=== PATIENT | male | born 1955 | race Caucasian/White ===

== ENCOUNTER 2020-11-13 13:06 | Emergency (ER) | payer BC, OTHER ==
[2020-11-13 14:32] LABS: HEMOGLOBIN 12.9 gm/dl (14.0-17.5); RED BLOOD COUNT 4.28 M/UL (4.20-5.50); WHITE BLOOD COUNT 4.8 K/UL (4.5-11.0)
[2020-11-13 14:59] LABS: BUN/CREATININE RATIO 14 (0-10)
[2020-11-13] MEDS ORDERED: DOXYCYCLINE HY100 MG PO (16:31)
== END 2020-11-13 18:50 | disposition home or self-care (01) ==
LOC: ER1 13:06
PROVIDERS: Family Medicine
DX: U07.1 COVID-19 (principal); J12.82 Pneumonia due to coronavirus disease 2019; J44.1 Chronic obstructive pulmonary disease with (acute) exacerbation; I10 Essential (primary) hypertension; Z88.0 Allergy status to penicillin; Z87.891 Personal history of nicotine dependence
CPT/HCPCS: 0240U; 36600; 71046; 80053; 81001; 82550; 82553; 82803; 83874; 84484; 85025; 85379; 85652; 86140; 87081; 87880; 93005; 94664; 94760; 96374; 99285; J2930; M0239

== ENCOUNTER 2021-11-14 19:32 | Emergency (ER) | payer BC ==
[~2021-11-14 19:32] MED LIST: DOXYCYCLINE HY100 MG PO
[2021-11-14 20:59] LABS: RED BLOOD COUNT 4.7 M/UL (4.20-5.50); WHITE BLOOD COUNT 9.3 K/UL (4.5-11.0)
[2021-11-14] MEDS ORDERED: PREDNISONE 20 M20 MG PO (22:37)
== END 2021-11-14 22:40 | disposition home or self-care (01) ==
LOC: ER1 19:32
PROVIDERS: Physician Assistant
DX: U07.1 COVID-19 (principal); J44.0 Chronic obstructive pulmonary disease with (acute) lower respiratory infection; J20.9 Acute bronchitis, unspecified; J44.1 Chronic obstructive pulmonary disease with (acute) exacerbation; I11.9 Hypertensive heart disease without heart failure; F17.210 Nicotine dependence, cigarettes, uncomplicated; Z85.828 Personal history of other malignant neoplasm of skin; Z88.0 Allergy status to penicillin
CPT/HCPCS: 0240U; 36600; 71045; 80053; 81001; 82550; 82553; 82803; 83874; 83880; 84484; 85025; 85610; 85730; 99285

== ENCOUNTER 2022-05-13 12:27 | Emergency (ER) | payer BC ==
[~2022-05-13 12:27] MED LIST changes: +PREDNISONE 20 M20 MG PO
== END 2022-05-13 16:12 | disposition home or self-care (01) ==
LOC: ER1 12:27
DX: S01.01XA Laceration without foreign body of scalp, initial encounter (principal); R40.2410 Glasgow coma scale score 13-15, unspecified time; I10 Essential (primary) hypertension; J44.9 Chronic obstructive pulmonary disease, unspecified; Z23 Encounter for immunization; W01.190A Fall on same level from slipping, tripping and stumbling with subsequent striking against furniture, initial encounter
CPT/HCPCS: 12002; 70450; 72125; 90471; 90715; 99283